=== PATIENT | male | born 1990 | race Two or more races ===

== ENCOUNTER 2025-05-28 09:57 | Outpatient (RCR) | payer MEDICAID, SELFPAY ==
--- NOTE | 2025-05-28 10:00 | XR_ITS ---
Examination: VENTURA, hepatobiliary radioisotope scan Gallbladder ejection fraction study. Date and time of exam: May 28, 2025 1023 hours INDICATIONS: Stabbing right upper abdominal pain one year with heartburn Technique: 6.0 mCi of 99M Hepatolite administered. Serial imaging then obtained from immediate through 60 minutes. 2.3 mcg selective catheter Kinevac administered for gallbladder ejection fraction study. Findings: Radioisotope activity within the liver is reasonably homogenous. Gallbladder, common bile duct small bowel activity noted Impression: Gallbladder activity Abnormal gallbladder ejection fraction, 7%, normal greater than 35%
== END 2025-06-02 23:59 | disposition home or self-care (01) ==
LOC: SNUC 09:57
PROVIDERS: PCP Registered Nurse; Referring Provider Registered Nurse; Visit Provider Registered Nurse
DX: R93.2 Abnormal findings on diagnostic imaging of liver and biliary tract (principal)
CPT/HCPCS: 78227; A9537; J2805